=== PATIENT | female | born 1960 | race Caucasian/White ===

== ENCOUNTER 2024-03-31 15:17 | Emergency (ER) | payer MEDICARE ==
[2024-03-31] MEDS: HYDROmorphone 0.5 MG/0.5 ML Syringe IM ONE (17:02)
[2024-03-31] MEDS: Phenylephrine 0.5% Nasal Spray 15 ML Bot NASBOTH ONE (17:03)
== END 2024-03-31 18:20 | disposition home or self-care (01) ==
LOC: JD.ED 15:17
DX: R04.0 Epistaxis (principal); Z88.1 Allergy status to other antibiotic agents
CPT/HCPCS: 30905; 92950; 96372; 99283; A9270; C9046; J1170; 30901

== ENCOUNTER 2024-03-31 22:11 | Emergency (ER) | payer SELFPAY | END 2024-04-01 00:05 | disposition home or self-care (01) | LOC: JD.ED 22:11 | DX: R04.0 Epistaxis (principal); Z88.1 Allergy status to other antibiotic agents; Z88.8 Allergy status to other drugs, medicaments and biological substances | CPT/HCPCS: 30901; 30903; 99283; 99283-25 ==